=== PATIENT | male | born 1985 | race Two or more races ===

== ENCOUNTER 2023-03-29 12:31 | Inpatient (IN) | payer MEDICAID, OTHER ==
[~2023-03-29] VITALS: Ht 172.7 cm; Wt 65.6 kg
[2023-03-29 14:10] VITALS: PULSE 64; RESP 18; O2SAT 99
[2023-03-29 14:14] LABS: Basophils # (auto) 0 10 ^3/uL (0-0.2); Basophils % (auto) 0.6 % (0.0-2.0); Eosinophils # (auto) 0.1 10 ^3/uL (0-0.8); Eosinophils % (auto) 1.9 % (0.0-7.0); Hematocrit 44.9 % (41.0-53.0); Hemoglobin 15.8 g/dL (13.5-17.5); Lymphocytes # (auto) 1.6 10 ^3/uL (0.4-5.4); Lymphocytes % (auto) 31.5 % (10.0-50.0); Mean Corpuscular Hemoglobin 30.2 pg (28.0-32.0); Mean Corpuscular Hgb Conc. 35.2 g/dL (32.0-36.0); Mean Corpuscular Volume 85.7 fL (80.0-100.0); Monocytes # (auto) 0.5 10 ^3/uL (0-1.3); Monocytes % (auto) 10.7 % (0.0-12.0); Neutrophils # (auto) 2.7 10 ^3/uL (1.6-8.6); Neutrophils % (auto) 55.3 % (37.0-80.0); Nucleated Red Blood Cells % 0.3 %; Red Blood Cells 5.24 10^6/uL (4.5-5.90); Red Cell Distribution Width 12.8 % (11.8-14.3); White Blood Cell 4.9 10^3/uL (4.4-10.8)
[2023-03-29 14:19] LABS: Alanine Aminotransferase 36 U/L (7-40); Albumin 4.7 g/dL (3.2-4.8); Alkaline Phosphatase 85 U/L (46-116); Anion Gap 8 (5-15); Aspartate Aminotransferase 30 U/L (13-40); BUN/Creatinine Ratio 10.6 (10.0-20.0); Blood Alcohol < 3.0 mg/dL (<10); Blood Urea Nitrogen 9 mg/dL (9-23); Calcium 9.1 mg/dL (8.7-10.4); Carbon Dioxide 24 mmol/L (20-30); Chloride 108 mmol/L (98-107); Glucose 90 mg/dL (74-106); Lipase 46 U/L (12-53); Sodium 140 mmol/L (136-145)
[2023-03-29 14:20] LABS: Bilirubin, Total 0.5 mg/dL (0.2-1.0)
[2023-03-29 14:23] LABS: Amphetamine Screen, Urine Pos (NEGATIVE); Benzodiazephine Screen, Urine Neg (NEGATIVE)
[2023-03-29 14:24] LABS: Barbiturate Scree,Urine Neg (NEGATIVE); Cannabinoid Screen, Urine Neg (NEGATIVE); Cocaine Screen, Urine Neg (NEGATIVE); Opiate Scree,Urine Neg (NEGATIVE); Phencyclidine Screen, Urine Neg (NEGATIVE)
[2023-03-29 14:55] LABS: Urine Bacteria NONE SEEN /hpf (None Seen); Urine Blood Negative /uL (Negative); Urine Budding Yeast OCCASIONAL /hpf (None Seen); Urine Clarity HAZY (Clear); Urine Color Yellow (Yellow); Urine Mucus FEW (None Seen); Urine Protein, UAD TRACE (Negative); Urine Specific Gravity 1.035 (1.001-1.035); Urine Urobilinogen Normal (Negative); Urine WBC 1 /hpf (0 - 3); Urine pH 5.5 (5.0-8.0)
[2023-03-29] MEDS ORDERED: KETOROLAC TROMETH 60MG/2ML VIAL IM ONE (15:00)
[2023-03-29] MEDS ORDERED: PANTOPRAZOLE 40 MG/10 ML VIAL INJ IV ONE (16:00)
[2023-03-29] MEDS ORDERED: SODIUM CHLORIDE 0.9% 1,000 ML IV ONE (16:00)
[2023-03-29] MEDS ORDERED: ONDANSETRON HCL 4 MG/2 ML VIAL IV ONE (16:00)
[2023-03-29] MEDS ORDERED: ONDANSETRON HCL 4 MG/2 ML VIAL IV PRN (17:00)
[2023-03-29] MEDS: SODIUM CHLORIDE 0.9% 1,000 ML IV SCH (17:29)
[2023-03-29 18:20] VITALS: PULSE 99; RESP 20; O2SAT 96
[2023-03-29 20:00] VITALS: BP 104/65; PULSE 59; RESP 17; TEMP 97.9
[2023-03-29] MEDS: MORPHINE SULFATE INJ 2 MG/ml SYRG IV PRN (20:22)
[2023-03-29 22:00] VITALS: BP 104/65; PULSE 59; RESP 17; TEMP 97.9; O2SAT 96
[2023-03-29 22:17] VITALS: PULSE 59; RESP 17; O2SAT 96
[2023-03-30] VITALS (7 sets, daily range): BP systolic 102–112; BP diastolic 58–74; PULSE 51–67; RESP 16–20; TEMP 97.8–98.5; O2SAT 97–99
[2023-03-30] MEDS: SODIUM CHLORIDE 0.9% 1,000 ML IV SCH ×3 (01:20→17:00)
[2023-03-30] MEDS: MORPHINE SULFATE INJ 2 MG/ml SYRG IV PRN (05:32)
[2023-03-30 05:49] LABS: Basophils # (auto) 0 10 ^3/uL (0-0.2); Basophils % (auto) 0.5 % (0.0-2.0); Eosinophils # (auto) 0.1 10 ^3/uL (0-0.8); Eosinophils % (auto) 2.7 % (0.0-7.0); Hematocrit 42.2 % (41.0-53.0); Hemoglobin 14.6 g/dL (13.5-17.5); Lymphocytes # (auto) 2.4 10 ^3/uL (0.4-5.4); Lymphocytes % (auto) 43.6 % (10.0-50.0); Mean Corpuscular Hgb Conc. 34.6 g/dL (32.0-36.0); Mean Corpuscular Volume 86.8 fL (80.0-100.0); Monocytes # (auto) 0.5 10 ^3/uL (0-1.3); Monocytes % (auto) 8.9 % (0.0-12.0); Neutrophils # (auto) 2.4 10 ^3/uL (1.6-8.6); Neutrophils % (auto) 44.3 % (37.0-80.0); Nucleated Red Blood Cells % 0.1 %; Red Blood Cells 4.85 10^6/uL (4.5-5.90); Red Cell Distribution Width 12.7 % (11.8-14.3); White Blood Cell 5.4 10^3/uL (4.4-10.8)
[2023-03-30 06:12] LABS: Alanine Aminotransferase 27 U/L (7-40); Alkaline Phosphatase 69 U/L (46-116); Anion Gap 5 (5-15); BUN/Creatinine Ratio 9.1 (10.0-20.0); Blood Urea Nitrogen 7 mg/dL (9-23); Calcium 8.2 mg/dL (8.7-10.4); Carbon Dioxide 22 mmol/L (20-30); Chloride 112 mmol/L (98-107); Glucose 93 mg/dL (74-106); Sodium 139 mmol/L (136-145)
[2023-03-30 06:13] LABS: Albumin 3.8 g/dL (3.2-4.8); Aspartate Aminotransferase 20 U/L (13-40); Bilirubin, Total 0.4 mg/dL (0.2-1.0); Total Protein 5.7 g/dL (5.7-8.2)
[2023-03-30] MEDS: PANTOPRAZOLE 40 MG/10 ML VIAL INJ IV SCH (10:07)
[2023-03-30] MEDS: NICOTINE 21MG/24 HR TOPICAL PATCH TD SCH (10:08)
[2023-03-31] MEDS: SODIUM CHLORIDE 0.9% 1,000 ML IV SCH ×3 (02:20→15:55)
[2023-03-31 05:00] VITALS: BP 117/66; PULSE 61; RESP 16; TEMP 97.6; O2SAT 99
[2023-03-31 08:00] VITALS: PULSE 51; O2SAT 98
[2023-03-31 09:18] LABS: Hepatitis B Surface Antibody Negative (Negative)
[2023-03-31 09:50] LABS: Hepatitis C Antibody Negative (Negative)
[2023-03-31] MEDS: PANTOPRAZOLE 40 MG/10 ML VIAL INJ IV SCH (11:21)
[2023-03-31] MEDS: NICOTINE 21MG/24 HR TOPICAL PATCH TD SCH (11:22)
[2023-03-31 13:00] VITALS: BP 105/67; PULSE 61; RESP 17; TEMP 98.1; O2SAT 100
[2023-03-31] MEDS ORDERED: GASTROGRAFIN 30 ML SOL ONE (13:23)
== END 2023-03-31 16:54 | disposition left against medical advice (07) | DRG 247 ==
LOC: ER 12:31 → OVERFLOW 16:59 → WEST WING 18:32
PROVIDERS: ADMIT Nurse Practitioner Family; ATTEND Internal Medicine
DX: K56.7 Ileus, unspecified (principal); E86.0 Dehydration; I10 Essential (primary) hypertension; Z53.29 Procedure and treatment not carried out because of patient's decision for other reasons; F15.10 Other stimulant abuse, uncomplicated; F14.10 Cocaine abuse, uncomplicated; F17.200 Nicotine dependence, unspecified, uncomplicated; Z71.6 Tobacco abuse counseling
CPT/HCPCS: 36415; 71045; 74176; 74250; 80053; 80307; 80320; 81001; 83690; 85025; 86706; 86803; C9113; G0378; J2405

== ENCOUNTER 2023-07-08 22:54 | Emergency (ER) | payer MEDICAID ==
[~2023-07-08] VITALS: Ht 175.3 cm; Wt 72.6 kg
[2023-07-08 23:30] VITALS: PULSE 86; RESP 14; O2SAT 98
[2023-07-08] MEDS ORDERED: ceFAZolin 1GM/50ML 50 ML IV ONE (23:45)
[2023-07-09] VITALS: BP 126/75; PULSE 86; RESP 14; TEMP 98.4; O2SAT 98
[2023-07-09] MEDS ORDERED: CEPH500C PO (00:07)
== END 2023-07-09 01:19 | disposition home or self-care (01) ==
LOC: EDBD 22:54 → EDUNIT# 22:54 → ER 22:54
DX: S62.612A Displaced fracture of proximal phalanx of right middle finger, initial encounter for closed fracture (principal); S61.232A Puncture wound without foreign body of right middle finger without damage to nail, initial encounter; S61.234A Puncture wound without foreign body of right ring finger without damage to nail, initial encounter; W34.00XA Accidental discharge from unspecified firearms or gun, initial encounter; Y93.89 Activity, other specified; Y92.89 Other specified places as the place of occurrence of the external cause; Y99.8 Other external cause status
CPT/HCPCS: 26770; 73130; 96365; 99284; J0690

== ENCOUNTER 2023-08-01 00:57 | Emergency (ER) | payer SELFPAY ==
[~2023-08-01] VITALS: Ht 170.2 cm; Wt 69.5 kg
[~2023-08-01 00:57] MED LIST: CEPH500C PO
[2023-08-01 02:47] VITALS: PULSE 83; RESP 10; O2SAT 94
[2023-08-01 02:51] VITALS: TEMP 98.1
[2023-08-01 04:00] VITALS: BP 110/73; PULSE 70; RESP 8; O2SAT 93
[2023-08-01] MEDS ORDERED: ceFAZolin IM 1GM/2.5ML STERILE WATER IM ONE (04:00)
[2023-08-01] MEDS ORDERED: CIPR-173 PO (04:19)
[2023-08-01] MEDS ORDERED: ceFAZolin 1GM VL ONE (04:33)
[2023-08-01] MEDS ORDERED: STERILE WATER 10 ML ONE (04:34)
== END 2023-08-01 05:07 | disposition home or self-care (01) ==
LOC: ER 00:57
DX: L03.113 Cellulitis of right upper limb (principal); L02.511 Cutaneous abscess of right hand; F15.90 Other stimulant use, unspecified, uncomplicated; Z98.890 Other specified postprocedural states; Z79.899 Other long term (current) drug therapy
CPT/HCPCS: 73130; 96372; 99283; J0690

== ENCOUNTER 2023-08-26 16:09 | Emergency (ER) | payer SELFPAY ==
[~2023-08-26] VITALS: Ht 170.2 cm; Wt 68.4 kg
[2023-08-26] MEDS: VANCOMYCIN 1GM/200ML 200 ML IV ONE (02:21)
[~2023-08-26 16:09] MED LIST changes: +CIPR-173 PO
[2023-08-26 18:55] LABS: Basophils # (auto) 0.1 10 ^3/uL (0-0.2); Basophils % (auto) 0.6 % (0.0-2.0); Eosinophils # (auto) 0.1 10 ^3/uL (0-0.8); Eosinophils % (auto) 1.3 % (0.0-7.0); Hematocrit 46.2 % (41.0-53.0); Hemoglobin 15.8 g/dL (13.5-17.5); Lymphocytes # (auto) 2.5 10 ^3/uL (0.4-5.4); Lymphocytes % (auto) 28.6 % (10.0-50.0); Mean Corpuscular Hemoglobin 29.9 pg (28.0-32.0); Mean Corpuscular Hgb Conc. 34.3 g/dL (32.0-36.0); Mean Corpuscular Volume 87.1 fL (80.0-100.0); Monocytes # (auto) 0.6 10 ^3/uL (0-1.3); Monocytes % (auto) 6.4 % (0.0-12.0); Neutrophils # (auto) 5.6 10 ^3/uL (1.6-8.6); Neutrophils % (auto) 63.1 % (37.0-80.0); Nucleated Red Blood Cells % 0.1 %; Red Cell Distribution Width 12.9 % (11.8-14.3); White Blood Cell 8.8 10^3/uL (4.4-10.8)
[2023-08-26 19:00] LABS: Chloride 108 mmol/L (98-107); Potassium 3.8 mmol/L (3.5-5.1); Sodium 139 mmol/L (136-145)
[2023-08-26 19:01] LABS: Anion Gap 7 (5-15); Calcium 9.7 mg/dL (8.5-10.1); Carbon Dioxide 24 mmol/L (20-30)
[2023-08-26 19:06] LABS: Blood Urea Nitrogen 7 mg/dL (9-23); Glucose 87 mg/dL (74-106)
[2023-08-26 19:07] LABS: CRP High Sensitivity 0.03 mg/dL (<1.0)
[2023-08-26 19:52] LABS: Erythrocyte Sedimentation Rate 2 mm/hr (0-20)
[2023-08-27] MEDS: PIPERACILLIN-TAZOB 3.375GM 100 ML IV ONE (01:19)
[2023-08-27 01:31] VITALS: PULSE 82; RESP 20; O2SAT 97
[2023-08-27 02:20] VITALS: BP 103/66; PULSE 83; RESP 20; TEMP 98.3; O2SAT 96
== END 2023-08-27 03:16 | disposition short-term general hospital (02) ==
LOC: ER 16:09
DX: S62.602A Fracture of unspecified phalanx of right middle finger, initial encounter for closed fracture (principal); M86.9 Osteomyelitis, unspecified; F15.90 Other stimulant use, unspecified, uncomplicated; Z79.899 Other long term (current) drug therapy; X58.XXXA Exposure to other specified factors, initial encounter; Y93.89 Activity, other specified; Y92.89 Other specified places as the place of occurrence of the external cause; Y99.8 Other external cause status
CPT/HCPCS: 36415; 73200; 80048; 85025; 85652; 86141; 96365; 99285; J2543

== ENCOUNTER 2024-01-19 19:04 | Emergency (ER) | payer SELFPAY ==
[~2024-01-19] VITALS: Ht 170.2 cm; Wt 63.0 kg
[2024-01-19 19:27] VITALS: BP 140/90; PULSE 104; RESP 18; O2SAT 99
== END 2024-01-19 22:39 | disposition left against medical advice (07) ==
LOC: ER 19:04
DX: S60.465A Insect bite (nonvenomous) of left ring finger, initial encounter (principal); Z53.21 Procedure and treatment not carried out due to patient leaving prior to being seen by health care provider; W57.XXXA Bitten or stung by nonvenomous insect and other nonvenomous arthropods, initial encounter; Y93.89 Activity, other specified; Y92.89 Other specified places as the place of occurrence of the external cause; Y99.8 Other external cause status